=== PATIENT | male | born 1955 | race Caucasian/White ===

== ENCOUNTER → 2020-12-24 | Outpatient (CLI) | payer OTHER ==
[2020-12-24 09:58] LABS: Appearance,Urine Clear (Clear); Bilirubin,Urine Negative (Negative); Blood,Urine Negative (Negative); Color,Urine Yellow; Glucose,Urine (UA) Negative (Negative); Ketones,Urine Negative (Negative); Leukocyte Esterase,Urine Negative (Negative); Nitrite,Urine Negative (Negative); PH, Urine 5.5 (5.0-8.0); Protein,Urine Trace (Negative); Specific Gravity,Urine 1.033 (1.001-1.035)
[2020-12-24 10:15] LABS: Basophils # (A) 0.1 k/uL (0-0.2); Basophils % (A) 1 %; Eosinophils # (A) 0.3 k/uL (0-0.7); Eosinophils % (A) 5 %; HCT 41.3 % (39.0-53.0); HGB 13.9 gm/dL (13.0-17.5); Lymphocytes # (A) 1.7 k/uL (1.0-4.8); Lymphocytes % (A) 28 %; MCH 32.2 pg (25.0-35.0); MCHC 33.7 g/dL (31.0-37.0); MCV 95.7 fL (80.0-100.0); Mean Platelet Volume 6.6; Monocytes # (A) 0.4 k/uL (0-1.0); Monocytes % (A) 7 %; Neutrophils # (A) 3.4 k/uL (1.3-7.7); Neutrophils % (A) 57 %; Platelet Count 169 k/uL (150-450); RBC 4.32 m/uL (4.30-5.90)
[2020-12-24 10:31] LABS: African American GFR (CKD) >90 (>60 ml/min/1.73 sqM); Anion Gap 8 mmol/L; Blood Urea Nitrogen 15 mg/dL (9-20); Calcium 9.3 mg/dL (8.4-10.2); Carbon Dioxide 29 mmol/L (22-30); Chloride 105 mmol/L (98-107); Glucose 104 mg/dL (74-99); Non-African American GFR(CKD) >90 (>60 ml/min/1.73 sqM); Potassium 4.1 mmol/L (3.5-5.1); Sodium 142 mmol/L (137-145)
== END | disposition home or self-care (01) ==
LOC: LABPAT 09:15
PROVIDERS: ATTEND Urology
DX: Z01.812 Encounter for preprocedural laboratory examination (principal); N47.1 Phimosis; N39.0 Urinary tract infection, site not specified
CPT/HCPCS: 36415; 80048; 81003; 85025

== ENCOUNTER 2020-12-31 09:34 | Day surgery (SDC) | payer OTHER ==
[2020-12-29 14:28] VITALS: BMI 35.2
--- NOTE | 2020-12-30 19:02 | P.GSHP ---
History of Present Illness H&P Date: 12/30/20 65 yo male with recurrent balanitis and with secondary phimosis comes for circumcision. HE failed medical management. The risks have been outlined - Constitutional Constitutional: Denies chills, Denies fever - EENT Eyes: denies blurred vision, denies pain Ears, nose, mouth and throat: Denies headache, Denies sore throat - Cardiovascular Cardiovascular: Denies chest pain, Denies shortness of breath - Respiratory Respiratory: Denies cough, Denies 7 - Gastrointestinal Gastrointestinal: Denies abdominal pain, Denies diarrhea, Denies nausea, Denies vomiting - Genitourinary (Female) Genitourinary: Denies dysuria, Denies hematuria - Genitourinary (Male) Genitourinary: Denies dysuria, Denies hematuria - Musculoskeletal Musculoskeletal: Denies myalgias - Integumentary Integumentary: Denies pruritus, Denies rash - Neurological Neurological: Denies numbness, Denies weakness - Psychiatric Psychiatric: Denies anxiety, Denies depression - Endocrine Endocrine: Denies fatigue, Denies weight change Past Medical History Past Medical History: GERD/Reflux, Hyperlipidemia, Hypertension, Sleep Apnea/CPAP/BIPAP History of Any Multi-Drug Resistant Organisms: None Reported Past Surgical History: Back Surgery, Cholecystectomy, Heart Catheterization, Orthopedic Surgery Additional Past Surgical History / Comment(s): surgery to repair rt thumb, rt knee arthroscopy, joycelyn shoulder rotator cuff, "neck fusion" Past Anesthesia/Blood Transfusion Reactions: No Reported Reaction Smoking Status: Former smoker - Past Family History Mother Family Medical History: No Reported History Medications and Allergies Home Medications Medication Instructions Recorded Confirmed Type Aspirin [Adult Low Dose Aspirin EC] 81 mg PO HS 12/29/20 12/29/20 History Atorvastatin [Lipitor] 40 mg PO HS 12/29/20 12/29/20 History Ferrous Sulfate [Feosol] 325 mg PO HS 12/29/20 12/29/20 History Meloxicam [Mobic] 15 mg PO HS 12/29/20 12/29/20 History Metoprolol Succinate [Toprol XL] 50 mg PO HS 12/29/20 12/29/20 History [place]-3 Fatty Acids/Fish Oil [Fish 2,000 mg PO HS 12/29/20 12/29/20 History Oil 1,000 mg Softgel] Omeprazole [PriLOSEC] 20 mg PO HS 12/29/20 12/29/20 History Pregabalin [Lyrica] 75 mg PO BID 12/29/20 12/29/20 History Sertraline [Zoloft] 100 mg PO HS 12/29/20 12/29/20 History Allergies Allergy/AdvReac Type Severity Reaction Status Date / Time No Known Allergies Allergy Verified 12/29/20 14:16 Surgical - Exam - General well developed, well nourished, no distress - Eyes PERRL - ENT no hearing loss - Neck trachea midline - Respiratory normal expansion, normal respiratory effort - Cardiovascular Rhythm: regular - Abdomen Abdomen: soft, non tender - Genitourinary scarred phimotic foreskin. testicles present, testicles non-tender - Integumentary no rash, no growths - Neurologic normal coordination, normal sensation - Musculoskeletal normal gait, normal posture - Psychiatric oriented to time, oriented to person, oriented to place, speech is normal, memory intact Assessment and Plan Assessment: Impression: Phimosis Plan: circumcision
[~2020-12-31 09:34] MED LIST: DEXAMETHASONE SOD PHOSPHATE 4 MG/ML 1 ML VIAL IV PRN; HYDROmorphone 0.5 MG/0.5 ML SYRINGE IVP PRN; LACTATED RINGERS 1,000 ML IV SCH; LIDOCAINE 1% (10MG/ML) FOR IV START INTRADERMA PRN; METOCLOPRAMIDE 5 MG/ML 2 ML VIAL IVP PRN; ONDANSETRON 4 MG/2 ML VIAL IVP PRN
[2020-12-31 10:16] VITALS: RESP 16; TEMP 97
[2020-12-31] MEDS ORDERED: fentaNYL (PF) 50 MCG/ML 2 ML AMP ONE (10:48)
[2020-12-31] MEDS ORDERED: PROPOFOL 10 MG/ML 20 ML VIAL IV ONE (10:48)
[2020-12-31] MEDS ORDERED: LIDOCAINE 1% INJ 10MG/ML (20 ML MDV) ONE (10:48)
[2020-12-31] MEDS ORDERED: MIDAZOLAM 2 MG/2 ML VIAL ONE (10:48)
[2020-12-31] MEDS ORDERED: BUPIVACAINE (PF) 0.5% 30 ML VIAL SQ ONE (11:04)
[2020-12-31] MEDS ORDERED: LIDOCAINE 2% INJ 20 MG/ML SQ ONE (11:05)
[2020-12-31] MEDS ORDERED: BACITRACIN OINT 1 EACH PACKET TOPICAL ONE (11:20)
--- NOTE | 2020-12-31 11:31 | P.OP ---
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 He has tight phimosis and is unable retract the foreskin. He has recurrent balanitis. This is due to balanitis xerotica obliterans. He comes for circumcision Description of Procedure: Patient brought operating suite. On the operating table is given IV sedation. He is prepped and draped sterilely. A penile block with 20 mL of a 50-50 mixture of half percent Marcaine plain and 2% Xylocaine plain is administered. After adequate anesthesia the redundant foreskin is excised. I controlled bleeding with electrocautery. I reapproximate the shaft skin to the subcoronal skin with running 4-0 chromic. The wound distress the patient awake and returned recovery in good condition. Blood loss is 10 mL. Be discharged home upon recovery and found the office in one week
[2020-12-31 12:06] VITALS: BP 127/81; PULSE 55
== END 2020-12-31 12:49 | disposition home or self-care (01) ==
LOC: OR 09:34
PROVIDERS: ATTEND Urology
DX: N48.0 Leukoplakia of penis (principal); N47.1 Phimosis; K21.9 Gastro-esophageal reflux disease without esophagitis; E78.5 Hyperlipidemia, unspecified; I10 Essential (primary) hypertension; G47.33 Obstructive sleep apnea (adult) (pediatric); Z87.891 Personal history of nicotine dependence; Z79.82 Long term (current) use of aspirin; Z79.899 Other long term (current) drug therapy; Z98.890 Other specified postprocedural states; Z90.49 Acquired absence of other specified parts of digestive tract
CPT/HCPCS: 88304; 54161; J2001 ×2; J2250; J1100; J0690; J2405; J3010; J2704

== ENCOUNTER → 2023-09-29 | Outpatient (CLI) | payer MEDICARE, OTHER ==
--- NOTE | 2023-09-29 15:11 | P.SLEEP ---
History of Present Illness DATE: 09/29/2023 CONSULTATION/NEW PATIENT EVALUATION HISTORY OF PRESENT ILLNESS/SLEEP-WAKE EVALUATION: 68-year-old gentleman had been evaluated in the sleep center for obstructive sleep apnea hypopnea syndrome. Patient had been diagnosed with obstructive sleep apnea about 8 years ago in [place]. Since that time she is on treatment with CPAP every night. He has Respironics CPAP unit, which was on recall, and unit was replaced about 1 year ago. I checked CPAP unit. CPAP pressure is 11-13, average 12.3. Usage is 98%, average 5.5 hours per night. Mask feet 80%. Apnea-hypopnea index is 4.7, which is in normal range. SLEEP SCHEDULE: Usually sleep schedule from 11 PM to 6 AM 7 days a week. FALLING ASLEEP: Sometimes patient has difficulties with falling asleep. DURING SLEEP: Patient has occasional snoring while using CPAP and may wake up from sleep once without nocturia. No history of hypnogogical hallucinations, sleep paralysis, or cataplexy. DURING THE DAY/WAKE STATE: During the day patient may have difficulties to pay attention may fall asleep, has problems with memory concentration.. [place] sleepiness scale is increased to 11. Patient usually doesn't take naps. PAST MEDICAL HISTORY: Hypertension, hyperlipidemia, acid reflux, depression. PAST SURGICAL HISTORY: Back surgery the level LIII-S1, neck surgery, cholecystectomy. MEDICATIONS: Atorvastatin 40 mg once a day, Omeprazole 20 mg once a day, sertraline 200 mg once a day, Toprol 50 mg once a day, aspirin 81 mg once a day. SOCIAL HISTORY: History of smoking for 35 pack years, presently using vape, alcohol consumption occasional. FAMILY HISTORY: Heart problems, Parkinson's disease. REVIEW OF SYSTEMS: Episodes of snoring while using CPAP. No fevers. No double vision. No recent chest pain. No shortness of breath. No abdominal pain. No bleeding episodes. No blood in urine. No seizure episodes. PHYSICAL EXAMINATION: GENERAL: A pleasant patient without any distress. VITAL SIGNS: BP 128/68, HR 51, RR 16, weight 243.6 pounds, height 5 foot 5 inches, body mass index 40.4. HEENT: PERRLA, EOMI. Evaluation of oropharynx showed tongue protrudes midline, low position of soft palate Mallampati 4. NECK: Supple. No JVD. Thyroid is not palpable. 20 inches in circumference. LUNGS: Clear to percussion and to auscultation. Good air exchange. No wheezing or rhonchi. HEART: S1, S2 regular. No murmurs, gallops or rubs. ABDOMEN: Soft and nontender. Bowel sounds are present. No organomegaly appreciated. EXTREMITIES: No clubbing or cyanosis. OUTREACH EDUCATOR: Awake, alert, and oriented x3. Cranial nerves 2 to 7 intact. There is no fasciculation or atrophy noted. No focal deficits observed. ASSESSMENT: 1. History of obstructive sleep apnea hypopnea syndrome for 8 years diagnosed in [place]. Patient continued to use CPAP equipment every night. Apnea- hypopnea index is 4.7, which is normal. Occasional snoring with CPAP. Extremely low position of soft palate Mallampati 4, extremely wide neck 20 inches in circumference. Obstructive sleep apnea hypopnea syndrome. 2. Obesity, BMI 40.4. 3. Hypertension. 4. Acid reflux. 5 hyperlipidemia. 6 . Depression. 7. Status post back surgery. 8. Status post neck surgery. 9 . Status post cholecystectomy. PLAN: 1. Patient will continue to use CPAP treatment every night for the whole nig ht. I changed range of the pressure slightly up to the level 11-15 centimeters of water. 2. We'll get results of previous sleep studies. 3. Preferable position during sleep on the side. 4. No driving if patient feels any sleepiness. Patient is aware of civil and criminal liability for unsafe driving. 5. Sleep hygiene with regular sleep time for at least 7.5-8 hours. 6. Watching and losing weight. 7. Follow-up visit in 6 months or earlier if patient has any problems. Thank you very much for referring this patient for consultation. Sincerely, Michel Vallecillo MD, PhD, FAASM. Diplomat of [place] [employer], Sleep Medicine Board by [place] [employer] [place] [employer] [facility] [place] Medications and Allergies Home Medications Medication Instructions Recorded Confirmed Type Aspirin [Adult Low Dose Aspirin EC] 81 mg PO HS 12/29/20 12/29/20 History Atorvastatin [Lipitor] 40 mg PO HS 12/29/20 12/29/20 History Ferrous Sulfate [Feosol] 325 mg PO HS 12/29/20 12/29/20 History Meloxicam [Mobic] 15 mg PO HS 12/29/20 12/29/20 History Metoprolol Succinate [Toprol XL] 50 mg PO HS 12/29/20 12/29/20 History [place]-3 Fatty Acids/Fish Oil [Fish 2,000 mg PO HS 12/29/20 12/29/20 History Oil 1,000 mg Softgel] Omeprazole [PriLOSEC] 20 mg PO HS 12/29/20 12/29/20 History Pregabalin [Lyrica] 75 mg PO BID 12/29/20 12/29/20 History Sertraline [Zoloft] 100 mg PO HS 12/29/20 12/29/20 History HYDROcodone/APAP 5-325MG [[place] 1 tab PO Q4HR PRN #14 tab 12/31/20 Rx 5-325] Allergies Allergy/AdvReac Type Severity Reaction Status Date / Time No Known Allergies Allergy Verified 12/31/20 10:20 Sleep Note - Sleep Note Sleep Note: Temperature: Pulse Rate: Respiratory Rate: Blood Pressure: SpO2: Height: Weight: BMI: Neck Circumference:
== END ==
LOC: 3 N SLEEP 14:17
PROVIDERS: ATTEND Internal Medicine
DX: G47.33 Obstructive sleep apnea (adult) (pediatric) (principal); E66.9 Obesity, unspecified; I10 Essential (primary) hypertension; K21.9 Gastro-esophageal reflux disease without esophagitis; E78.5 Hyperlipidemia, unspecified; F32.A Depression, unspecified; Z98.890 Other specified postprocedural states; Z90.49 Acquired absence of other specified parts of digestive tract; Z68.41 Body mass index [BMI] 40.0-44.9, adult; Z79.899 Other long term (current) drug therapy; Z79.82 Long term (current) use of aspirin
CPT/HCPCS: 99211

== ENCOUNTER → 2024-05-02 | Outpatient (CLI) | payer MEDICARE, OTHER ==
--- NOTE | 2024-05-02 12:56 | CTL ---
EXAMINATION TYPE: CT Low Dose Lung DATE OF EXAM ORDERED: 05/02/2024 HISTORY: . Low Dose CT Lung Screening CT DLP: 86.[address] CTDI: 2.3 mGy IV CONTRAST USED: None. SCREENING VISIT: First visit COMPARISON: None. TECHNIQUE: Low dose computed tomography scan was performed through the chest at 1 millimeter thick se ctions and reconstructed images in the coronal plane at [address] DIAGNOSTIC QUALITY: Satisfactory FINDINGS: LUNG NODULES: 2 mm right apical lung nodule image 27. 4 mm groundglass nodular density left upper lob e image 55. 3 mm subpleural nodule right upper lobe posteriorly image 60. LUNGS: COPD: Severity: Mild Fibrosis: Severity:None Lymph nodes: None Other findings: None RIGHT PLEURAL SPACE: Effusion: None Calcification: None Thickening: None Pneumothorax: None LEFT PLEURAL SPACE: Effusion: None Calcification: None Thickening: None Pneumothorax: None HEART: Heart Size: Mildly enlarged Coronary calcification: Mild Pericardial effusion: None OTHER FINDINGS: Upper abdomen: No significant abnormality Bony thorax: Degenerative changes Supraclavicular region: No significant abnormalityOther: No significant abnormalityI IMPRESSION: 1. Scattered sub-5 mm pulmonary nodularity. FOLLOW UP CT CHEST RECOMMENDATION: Follow-up screening in one year CT LUNG RAD: LUNG RAD CATEGORY 2 benign appearance and/or behavior
== END | disposition home or self-care (01) ==
LOC: RADCTMAIN 08:37
PROVIDERS: ATTEND Family Medicine
DX: Z12.2 Encounter for screening for malignant neoplasm of respiratory organs (principal); R91.8 Other nonspecific abnormal finding of lung field; Z87.891 Personal history of nicotine dependence
CPT/HCPCS: 71271

== ENCOUNTER → 2024-06-07 | Outpatient (CLI) | payer MEDICARE, OTHER ==
--- NOTE | 2024-08-01 15:20 | P.PROGSL ---
Subjective DATE: 06/07/2024 FOLLOW UP VISIT. Patient with obstructive sleep apnea hypopnea syndrome return to sleep center for follow-up visit. Information from previous visit have been reviewed. Patient is using PAP equipment every night for the whole night, getting PAP supplies in time. The patient does not have significant problems with the mask, PAP unit and humidification. I checked information from PAP unit. PAP unit pressure 11-15 cm H2O. Usage is 100% for more then 4 hours, average 5.7 hours per night. Mask fit 80%, which is in acceptable range. Apnea Hypopnea Index is 4.7, which is normal. MEDICATIONS: Atorvastatin 40 mg once a day, Celebrex 200 mg once a day, omeprazole 40 mg once a day, prazosin 1 mg once a day, Lyrica 75 mg once a day, lisinopril 10 mg once a day,. During physical exam: GENERAL: A pleasant patient without any distress. VITAL SIGNS: BP 127/75, HR 57, RR 14, temperature 98.2, oxygen saturation room air 99%, weight is 250.2 lbs. HEENT: PERRLA, EOMI.low position of soft palate, Mallapati 3. NECK: Supple. No JVD. LUNGS: Clear to percussion and to auscultation. Good air exchange. No wheezing or rhonchi. HEART: S1, S2 regular. ABDOMEN: Soft and nontender. EXTREMITIES: No clubbing or cyanosis. INTERNATIONAL TRADE TEACHER: Awake, alert, and oriented x3. No focal deficit. Impressions: 1. Obstructive sleep apnea-hypopnea syndrome. Patient demonstrated great compliance with treatment, benefiting from treatment. 2. Obesity. 3. Hyperlipidemia. 4. Acid reflux. 5. History of depression. 6. Back problems. Plan: 1. Continue using PAP equipment every night for the whole night. 2. Sleep hygiene with regular time in bed for at least 7.5-8 hours 3. PAP unit should stay lower then position of the head. 4. Advised patient to remove all remaining water from humidifier canister daily and make it dry after each usage. Refill canister with fresh distilled water before each usage. 5. Watching and losing weight. 6. Precautions related to driving. No driving if feel any sleepiness. 7. I will maintain prescription for PAP supplies including mask, tube, filters. 8. Follow up visit in 6-8 months or earlier if patient has any problems. Thank you very much for allowing me to participate in the management of your patient. Michel Vallecillo MD, PhD, FAASM. Diplomat of [place] [employer], Sleep Medicine Board by [place] [employer] Returned Materials Inspector of [facility] [place] Objective Home Medications: Home Medications Medication Instructions Recorded Confirmed Type Aspirin [Adult Low Dose Aspirin EC] 81 mg PO HS 12/29/20 12/29/20 History Atorvastatin [Lipitor] 40 mg PO HS 12/29/20 12/29/20 History Ferrous Sulfate [Feosol] 325 mg PO HS 12/29/20 12/29/20 History Meloxicam [Mobic] 15 mg PO HS 12/29/20 12/29/20 History Metoprolol Succinate [Toprol XL] 50 mg PO HS 12/29/20 12/29/20 History [place]-3 Fatty Acids/Fish Oil [Fish 2,000 mg PO HS 12/29/20 12/29/20 History Oil 1,000 mg Softgel] Omeprazole [PriLOSEC] 20 mg PO HS 12/29/20 12/29/20 History Pregabalin [Lyrica] 75 mg PO BID 12/29/20 12/29/20 History Sertraline [Zoloft] 100 mg PO HS 12/29/20 12/29/20 History HYDROcodone/APAP 5-325MG [[place] 1 tab PO Q4HR PRN #14 tab 12/31/20 Rx 5-325]
== END ==
LOC: 3 N SLEEP 10:04
PROVIDERS: ATTEND Internal Medicine
CPT/HCPCS: 99212

== ENCOUNTER → 2024-10-01 | Outpatient (CLI) | payer MEDICARE, OTHER ==
--- NOTE | 2024-10-01 11:14 | MR ---
EXAMINATION TYPE: MR brain wo con DATE OF EXAM: 10/01/2024 10:40 AM COMPARISON: None. CLINICAL INDICATION: Male, 69 years old with history of memory loss; PHH, Memory loss, nightmares TECHNIQUE: Multi planar, multi sequence imaging was performed through the brain including: T1, T2, In version recovery, Diffusion weighted imaging, and gradient echo imaging. No gadolinium was given. FINDINGS: The christine-white junctions, ventricular system, basal cisterns appear unremarkable. Scattered foci of high T2 signal intensity are seen within the periventricular white matter. Midline structures show n o abnormality. Diffusion-weighted imaging shows no evidence of restricted diffusion. The susceptibili ty weighted images do not reveal any evidence for micro-hemorrhage. The bone marrow signal is within normal limits. Paranasal sinuses and mastoid air cells: Mild scattered paranasal sinus disease. Visualized orbits: Orbital contents are intact. Scalp sebaceous cyst anteriorly. IMPRESSION: 1. No evidence of intracranial mass or acute/subacute infarct. 2. Nonspecific white matter changes, likely secondary to small vessel ischemic disease. [facility], , 10/01/2024 11:12 AM
== END | disposition home or self-care (01) ==
LOC: RADMRIMAIN 09:54
PROVIDERS: ATTEND Psychiatry & Neurology Neurology
DX: R90.82 White matter disease, unspecified (principal); R41.3 Other amnesia
CPT/HCPCS: 70551

== ENCOUNTER → 2025-05-16 | Outpatient (CLI) | payer MEDICARE, OTHER ==
--- NOTE | 2025-05-16 10:35 | CTL ---
EXAMINATION TYPE: CT Low Dose Lung DATE OF EXAM ORDERED: 05/16/2025 COMPARISON: CT Low Dose Lung 05/02/2024 CLINICAL INDICATION: Male, 70 years old with history of Z87.891 personal hx tobacco use; PHH, Lung CA screening, Lung cancer screening, History of Smoking/tobacco use. TECHNIQUE: Low dose computed tomography scan was performed through the chest at 1 mm thick sections a nd reconstructed images in multiple planes at 1 mm and [address] DLP: 150.[address] CTDI: 4.0 mGy Automated exposure control for dose reduction was used. CT DIAGNOSTIC QUALITY: Satisfactory FINDINGS: Nodules: Few stable scattered pulmonary micronodules with examples including a right upper lobe subpleural 2.2 mm nodule (series 6, image 22) and a right midlung 3 mm nodule along the major fissure (series 6, im age 38). No new or enlarging pulmonary nodules. LUNGS: COPD: Severity: None Fibrosis: Severity: None Lymph nodes: None Other findings: Left apical subpleural lateral reticular scarring changes with additional involvement of the posterior right upper lobe subpleural region. RIGHT PLEURAL SPACE: Effusion: None Calcification: None Thickening: None Pneumothorax: None LEFT PLEURAL SPACE: Effusion: None Calcification: None Thickening: None Pneumothorax: None HEART: Heart Size: Normal Coronary Calcification: Small Pericardial Effusion: None OTHER FINDINGS: Upper abdomen: Gallbladder is surgically absent. Bony thorax: Partial visualization of anterior cervical fusion hardware. Bilateral shoulder arthropat hy. Supraclavicular region: None Other: The anterior chest subcutaneous tissue loop recorder. 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 Atherosclerotic calcification of the aorta and its branches. IMPRESSION: Few stable pulmonary nodules measuring measuring up to 3 mm. No new or enlarging pulmonar y nodules. CT LUNG RAD AND CT CHEST RECOMMENDATION: Lung-Rad 2 Benign Appearance or Behavior: Continue annual sc reening with LDCT in 12 months. S Modifier (other clinically significant findings): None [facility], , 05/16/2025 10:33 AM
== END | disposition home or self-care (01) ==
LOC: RADCTMAIN 09:12
PROVIDERS: ATTEND Family Medicine
DX: Z12.2 Encounter for screening for malignant neoplasm of respiratory organs (principal); R91.8 Other nonspecific abnormal finding of lung field; Z87.891 Personal history of nicotine dependence
CPT/HCPCS: 71271